=== PATIENT | male | born 1990 | race African-American/Black ===

== ENCOUNTER 2025-09-04 01:00 | Emergency (ER) | payer OTHER ==
[~2025-09-04] VITALS: Ht 175.3 cm; Wt 72.0 kg
[2025-09-04 01:09] VITALS: O2SAT 99
[2025-09-04 02:08] LABS: BASOPHILS % 0.4 % (0.0-2.0); EOSINOPHILS % 0.7 % (0.0-5.0); HEMATOCRIT. 36.9 % (42.0-52.0); HEMOGLOBIN. 12.4 g/dL (14.0-18.0); LYMPHOCYTES % 26.9 % (20.0-50.0); MEAN PLATELET VOLUME 8.8 fl (7.4-10.4); MONOCYTES % 10.3 % (2.0-8.0); NEUTROPHILS % 61.7 % (40.0-76.0); PLATELET 201 x1000/uL (130-400); RED BLOOD CELL COUNT 3.80 mill/uL (4.7-6.1); RED CELL DISTRIBUTION WIDTH 13.9 % (11.6-14.6)
[2025-09-04 02:11] LABS: CREATININE 1.0 mg/dL (0.6-1.3); ETHANOL BLOOD 246 mg/dL (<10); UREA NITROGEN BLOOD 9 mg/dL (9-23)
[2025-09-04 02:12] LABS: PROTEIN TOTAL 7.4 g/dL (6.0-8.3)
[2025-09-04 02:13] LABS: ASPARTATE AMINOTRANSFERASE 91 IU/L (<34); BILIRUBIN DIRECT < 0.1 mg/dL (<=3.0); BILIRUBIN TOTAL 0.3 mg/dL (0.1-1.0)
[2025-09-04] MEDS: ACETAMINOPHEN 325MG TABLET PO ONE ×3 (07:00→15:11)
[2025-09-04 07:23] LABS: *AMPHETAMINES SCREEN URINE NEGATIVE (NEGATIVE); *BARBITURATES SCREEN URINE NEGATIVE (NEGATIVE); *BENZODIAZEPINES SCREEN URINE NEGATIVE (NEGATIVE); *COCAINE SCREEN URINE NEGATIVE (NEGATIVE); CANNABINOID URINE SCREEN PRESUMPTIVE POSITIVE (NEGATIVE); ECSTASY MDMA SCREEN URINE NEGATIVE (NEGATIVE); METHADONE URINE SCREEN NEGATIVE (NEGATIVE); OPIATES URINE SCREEN NEGATIVE (NEGATIVE); PHENCYCLIDINE URINE SCREEN NEGATIVE (NEGATIVE)
[2025-09-04] MEDS ORDERED: HYDROXYZINE 25MG TABLET PO PRN (12:15)
[2025-09-04 20:26] VITALS: BP 132/86; PULSE 90; RESP 14; TEMP 36.9; O2SAT 99
[2025-09-04] MEDS ORDERED: TRAZODONE HCL 50MG TABLET PO SCH (21:00)
== END 2025-09-04 20:41 ==
LOC: ER 01:15
DX: R45.851 Suicidal ideations (principal); J45.909 Unspecified asthma, uncomplicated; F32.A Depression, unspecified; Z20.822 Contact with and (suspected) exposure to COVID-19; Z79.899 Other long term (current) drug therapy; Z88.5 Allergy status to narcotic agent
CPT/HCPCS: 36415; 80048; 80076; 80305; 80307; 80320; 80329; 85025; 87426; 93005; 99285; G0480